=== PATIENT | female | born 1975 | race Caucasian/White ===

== ENCOUNTER 2021-02-06 01:50 | Emergency (ER) | payer BC ==
[2021-02-06 03:00] LABS: CHLORIDE,CL 92 mmol/L (98-107)
[2021-02-06] MEDS ORDERED: Sodium Chloride 0.9% 10 ML Syringe FLUSH PRN (03:00)
[2021-02-06] MEDS ORDERED: Lactated Ringers 1,000 ML IV ONE (03:01)
[2021-02-06] MEDS ORDERED: Ondansetron 4 MG/2 ML SDV IV ONE (03:01)
[2021-02-06 04:01] LABS: ANION GAP 17.4 mmol/L (5-15); SODIUM,NA 126 mmol/L (136-145)
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
[2021-02-06] MEDS ORDERED: MVI, Adult with Vitamin K 10 ML, Folic Acid 1 MG, Thiamine 100 MG in Sodium Chloride 0.... IV SCH ×4 (04:15)
[2021-02-06] MEDS ORDERED: Magnesium Sulfate/Water 2 GM/50 ML BAG IV ONE (04:40)
[2021-02-06 09:22] LABS: BARBITURATE SCREEN,URINE NEGATIVE (NEGATIVE); BENZODIAZEPINES SCREEN,URINE NEGATIVE (NEGATIVE); EDDP,URINE SCREEN NEGATIVE (NEGATIVE); METHAMPHETAMINE SCREEN, URINE NEGATIVE (NEGATIVE); TCA SCREEN,URINE NEGATIVE (NEGATIVE); THC SCREEN,URINE 50 NG/ML NEGATIVE (NEGATIVE)
--- NOTE | 2021-02-06 09:39 | CT ---
[id number] CT/CT Head WO IV EXAM: CT Head WO IV CLINICAL DATA: HEAD INJURY COMPARISON STUDY: None FINDINGS: Right parietal scalp contusion. No underlying parietal fracture. Acute subarachnoid hemorrhage in the left frontotemporal region, including blood products within the sylvian fissure. Few tiny foci of pneumocephalus along the superior margin of the temporal bone middle cranial fossa (series 4 image 28 and series 2 image 14). No parenchymal contusion. No herniation or hydrocephalus. IMPRESSION: Acute left frontotemporal subarachnoid hemorrhage, including blood within the sylvian fissure. Few foci of air/gas abutting the superior margin of the temporal bone in the middle cranial fossa. Findings are most consistent with radiographically occult left temporal bone fracture. Right parietal scalp contusion. Luis Fernando Sánchez MD 02/06/21 0938 Thank you for allowing us to participate in the care of your patient.
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
--- NOTE | 2021-02-06 09:48 | CT ---
[id number] CT/CT Facial Bones WO IV Exam: CT Facial Bones WO IV Indication:FACIAL INJURIES Comparison: No prior imaging for comparison. Discussion/Impression: No acute facial bone fracture. Poor dentition with numerous dental caries and missing teeth. Small periapical abscesses adjacent to the remaining left mandibular molars Luis Fernando Sánchez MD 02/06/21 0949 Thank you for allowing us to participate in the care of your patient.
== END 2021-02-06 06:05 | disposition short-term general hospital (02) ==
LOC: VM.ED 01:50
DX: S02.109A Fracture of base of skull, unspecified side, initial encounter for closed fracture (principal); S06.6X9A Traumatic subarachnoid hemorrhage with loss of consciousness of unspecified duration, initial encounter; E87.1 Hypo-osmolality and hyponatremia; E83.42 Hypomagnesemia; F10.220 Alcohol dependence with intoxication, uncomplicated; Y90.8 Blood alcohol level of 240 mg/100 ml or more; Z88.5 Allergy status to narcotic agent; X58.XXXA Exposure to other specified factors, initial encounter
CPT/HCPCS: 70450; 70486; 72125; 80053; 80305-QW; 80307; 83605; 83735; 85025; 85610; 85730; 96365; 96368; 96375; 99284; 99285-25; J2405; J3411; J3475; J7030; J7120